=== PATIENT | male | born 1990 | race Caucasian/White ===

== ENCOUNTER 2019-06-22 08:14 | Emergency (ER) | payer SELFPAY ==
[2019-06-22 08:55] LABS: HEMATOCRIT 45.4 % (39.0-50.0); HEMOGLOBIN 15.4 g/dl (14.0-18.0); IMMATURE GRANULOCYTES 0.3 % (0.0-5.0); MEAN CORPUSCULAR HGB 29.5 pG CALC (26.0-32.0); MEAN CORPUSCULAR HGB CONC 33.9 g/L CALC (32.0-36.0); NEUT# 9.07 thou/uL (1.82-7.42); RED BLOOD COUNT 5.22 mill/uL (4.70-6.10); RED CELL DISTRI WIDTH 13.2 % (11.5-15.5)
[2019-06-22 09:13] LABS: ALBUMIN 4.2 g/dL (3.2-5.0); ALKALINE PHOSPHATASE 90 u/l (38-126); ANION GAP 16 (6-22 (CALC)); BILIRUBIN, TOTAL 0.4 mg/dL (0.0-1.4); BUN 9 mg/dL (9-20); BUN/CREATININE RATIO 12 (12-20 (CALC)); CARBON DIOXIDE 27 mmol/l (22-30); CHLORIDE 99 mmol/l (95-108); CREATININE 0.8 mg/dL (0.7-1.3); GFR > 60 ML/MIN (>=60 (CALC)); GFR FOR AFR.AMER. > 60 ML/MIN (>=60 (CALC)); LIPASE 20 u/l (23-300); POTASSIUM 4.5 mmol/l (3.5-5.1); SGOT/AST 26 u/l (17-59); SODIUM 138 mmol/l (137-146); TOTAL PROTEIN 7.4 g/dL (6.3-8.2)
[2019-06-22 11:27] LABS: ACT PARTIAL THROMBO TIME 28.7 SECONDS (20.0-32.5); PROTHROMBIN TIME 10.7 SECONDS (9.0-12.5)
[2019-06-22 11:33] VITALS: BP 135/77
[2019-06-22 11:55] LABS: BARBITURATES NEGATIVE (NEGATIVE); COCAINE NEGATIVE (NEGATIVE); METHADONE NEGATIVE (NEGATIVE); OXCYCODONE NEGATIVE (NEGATIVE); TETRAHYDROCANNABIONOL NEGATIVE (NEGATIVE); TRICYLIC ANTIDEPRESSANTS NEGATIVE (NEGATIVE)
== END 2019-06-22 12:28 | disposition short-term general hospital (02) ==
LOC: ED 08:14
PROVIDERS: Family Medicine
DX: I21.4 Non-ST elevation (NSTEMI) myocardial infarction (principal)
CPT/HCPCS: J1644; Q9967

== ENCOUNTER 2021-05-03 09:56 | Emergency (ER) | payer SELFPAY ==
[~2021-05-03] VITALS: Ht 175.3 cm; Wt 72.7 kg
[2021-05-03 10:40] LABS: HEMATOCRIT 44.6 % (39.0-50.0); HEMOGLOBIN 14.6 g/dl (14.0-18.0); IMMATURE GRANULOCYTES 0.1 % (0.0-5.0); MEAN CELL VOLUME 89.4 fL CALC (80.0-100.0); MEAN CORPUSCULAR HGB 29.3 pG CALC (26.0-32.0); MEAN CORPUSCULAR HGB CONC 32.7 g/dL CAL (32.0-36.0); NEUT# 4.54 thou/uL (1.82-7.42); RED BLOOD COUNT 4.99 mill/uL (4.70-6.10); RED CELL DISTRI WIDTH 14.5 % (11.5-15.5)
[2021-05-03 10:56] LABS: ALKALINE PHOSPHATASE 75 u/l (38-126); AMYLASE 60 u/l (30-110); BILIRUBIN, TOTAL 0.3 mg/dL (0.0-1.4); BUN 11 mg/dL (9-20); BUN/CREATININE RATIO 15 (12-20 (CALC)); CARBON DIOXIDE 27 mmol/l (22-30); CHLORIDE 104 mmol/l (95-108); CREATININE 0.7 mg/dL (0.7-1.3); GFR > 60 ML/MIN (>=60 (CALC)); GFR FOR AFR.AMER. > 60 ML/MIN (>=60 (CALC)); LIPASE 64 u/l (23-300); SGOT/AST 22 u/l (17-59); SODIUM 138 mmol/l (137-146); TOTAL PROTEIN 6.9 g/dL (6.3-8.2)
[2021-05-03 11:02] LABS: ACT PARTIAL THROMBO TIME 24.2 SECONDS (20.0-32.5); PROTHROMBIN TIME 10.7 SECONDS (9.0-12.5)
[2021-05-03 11:05] LABS: ANION GAP 10 (6-22 (CALC)); POTASSIUM 3.4 mmol/l (3.5-5.1)
[2021-05-03 11:06] LABS: D-DIMER 0.17 mg/L (0.19-0.60)
[2021-05-03] MEDS ORDERED: IBUPROFEN600 MG PO (14:00)
[2021-05-03 14:15] VITALS: BP 145/84
== END 2021-05-03 14:15 | disposition home or self-care (01) | DRG 313 ==
LOC: ED 09:56
DX: R07.89 Other chest pain (principal); I25.2 Old myocardial infarction; F17.210 Nicotine dependence, cigarettes, uncomplicated; F17.220 Nicotine dependence, chewing tobacco, uncomplicated; Z82.49 Family history of ischemic heart disease and other diseases of the circulatory system; Z20.822 Contact with and (suspected) exposure to COVID-19

== ENCOUNTER 2023-05-11 11:10 | Emergency (ER) | payer SELFPAY ==
[~2023-05-11] VITALS: Ht 175.3 cm; Wt 79.0 kg
[~2023-05-11 11:10] MED LIST: IBUPROFEN600 MG PO
[2023-05-11 11:20] VITALS: BP 153/103
[2023-05-11 11:30] VITALS: BP 147/105
[2023-05-11 11:48] LABS: BASO% 0.4 % (0-3); EOS% 2.3 % (0-8); HEMATOCRIT 44.7 % (39.0-50.0); HEMOGLOBIN 14.7 g/dl (14.0-18.0); LYMPH% 39.6 % (15-41); MEAN CORPUSCULAR HGB 28.9 pG CALC (26.0-32.0); MEAN CORPUSCULAR HGB CONC 32.9 g/dL CAL (32.0-36.0); MONO% 7.4 % (2-13); NEUT# 3.52 thou/uL (1.82-7.42); NEUT% 50.3 % (42-76); RED BLOOD COUNT 5.08 mill/uL (4.70-6.10); RED CELL DISTRI WIDTH 12.4 % (11.5-15.5)
[2023-05-11 12:14] LABS: ALBUMIN 4.6 g/dL (3.2-5.0); ALKALINE PHOSPHATASE 72 u/l (38-126); ANION GAP 12 (6-22 (CALC)); BILIRUBIN, TOTAL 0.3 mg/dL (0.2-1.3); BUN 8 mg/dL (9-20); BUN/CREATININE RATIO 10 (12-20 (CALC)); CARBON DIOXIDE 28 mmol/l (22-30); CHLORIDE 103 mmol/l (95-108); CREATININE 0.8 mg/dL (0.7-1.3); GFR FOR AFR.AMER. > 60 ML/MIN (>=60 (CALC)); GFR OTHER RACES > 60 ML/MIN (>=60 (CALC)); POTASSIUM 3.8 mmol/l (3.5-5.1); SGOT/AST 32 u/l (17-59); SODIUM 139 mmol/l (137-146); TOTAL PROTEIN 8.2 g/dL (6.3-8.2)
[2023-05-11 12:16] LABS: D-DIMER 0.22 mg/L (0.19-0.60)
[2023-05-11 12:19] LABS: PROTHROMBIN TIME 9.6 SECONDS (9.0-12.5)
[2023-05-11] MEDS ORDERED: MECLIZINE HYDRO25 M1 PO (12:46)
[2023-05-11] MEDS ORDERED: ONDANSETRON4 MG PO (12:46)
[2023-05-11 13:04] VITALS: BP 147/105
== END 2023-05-11 13:04 | disposition home or self-care (01) | DRG 149 ==
LOC: ED 11:10
PROVIDERS: Nurse Practitioner
DX: R42 Dizziness and giddiness (principal); R53.1 Weakness; R11.2 Nausea with vomiting, unspecified; F17.200 Nicotine dependence, unspecified, uncomplicated